=== PATIENT | female | born 1950 | race Two or more races ===

== ENCOUNTER 2022-02-14 06:17 | Inpatient (IN) | payer OTHER ==
[~2022-02-14] VITALS: Ht 157.5 cm; Wt 79.5 kg
[~2022-02-14 06:17] MED LIST: ALEN70TA74 PO; AMLO-483 PO; BISA10SU45 RE; CHOL20004 PO; CITA10TA8 PO; GLUC1CAP13 PO; IBUP800T27 PO; LACT1CAP26 PO; MULT-1018 OR; ROPI0.254 PO; THIA100T26 PO; TRAM50TA2 PO; TURM500C3 OR
[2022-02-14] MEDS ORDERED: ceFAZolin 1GM/50ML 100 ML IV ONE (06:42)
[2022-02-14] MEDS ORDERED: THROMBIN (BOVINE) 5000 UNIT SOL VIAL ONE (06:43)
[2022-02-14] MEDS ORDERED: GELATIN 1 SPONGE SIZE 100 TOP ONE (06:44)
[2022-02-14] MEDS ORDERED: MEPERIDINE HCL (50 MG/ML) 1 ML VIAL ONE (07:27)
[2022-02-14] MEDS ORDERED: MIDAZOLAM HCL 2MG/2ML 2ml VIAL (1mg/ml) ONE (07:27)
[2022-02-14] MEDS ORDERED: fentaNYL CITRATE 100 MCG/2 ML VL ONE (07:27)
[2022-02-14] MEDS ORDERED: IOHEXOL 300 MG/ML 100ML BOTTLE IJ ONE (08:28)
[2022-02-14] MEDS ORDERED: DexAMETHasone SOD PHOS 10MG/1ML VIAL INJ ONE (09:06)
[2022-02-14] MEDS ORDERED: SUGAMMADEX 200mg/2ml Vial (100MG/ML) IV ONE (09:55)
[2022-02-14] MEDS ORDERED: ceFAZolin 1GM/50ML 50 ML IV SCH (12:00)
[2022-02-14] MEDS ORDERED: HYDROmorphone HCL 2 MG/ML VL/or syr IV PRN (12:00)
[2022-02-14] MEDS ORDERED: NITROGLYCERIN 0.4 MG SL TAB SL PRN ×2 (12:00)
[2022-02-14] MEDS ORDERED: D5W/SOD CHL 0.45% 1,000 ML IV SCH ×2 (12:00)
[2022-02-14] MEDS: ceFAZolin 1GM/50ML 50 ML IV SCH ×2 (12:00→21:02)
[2022-02-14] MEDS ORDERED: HYDROcodone-ACET 10/325MG TAB PO PRN (12:00)
[2022-02-14] MEDS ORDERED: MILK OF MAGNESIA 30ML SUSP PO PRN (12:00)
[2022-02-14] MEDS ORDERED: MORPHINE SULFATE INJ 2 MG/ml SYRG IV PRN ×2 (12:00)
[2022-02-14] MEDS ORDERED: ACETAMINOPHEN 325 MG TAB PO PRN ×2 (12:00)
[2022-02-14] MEDS ORDERED: ONDANSETRON HCL 4 MG/2 ML VIAL IV PRN (12:30)
[2022-02-14] MEDS ORDERED: ePHEDrine SULFATE 50 MG/ML AMP IV PRN (12:30)
[2022-02-14] MEDS ORDERED: MORPHINE SULFATE 4 MG/ML SYR/VIAL IV PRN (12:30)
[2022-02-14] MEDS ORDERED: MIDAZOLAM HCL 2MG/2ML 2ml VIAL (1mg/ml) IV PRN (12:30)
[2022-02-14] MEDS: HYDROmorphone HCL 2 MG/ML VL/or syr IV PRN ×5 (12:52→15:15)
[2022-02-14] MEDS: LABETALOL HCL 5 MG/ML 4ML SYRINGE IV PRN ×2 (13:44→14:45)
[2022-02-14] MEDS ORDERED: CYCLOBENZAPRINE HCL 10 MG TAB PO SCH (14:00)
[2022-02-14] MEDS: CYCLOBENZAPRINE HCL 10 MG TAB PO SCH ×3 (14:00→21:14)
[2022-02-14] MEDS ORDERED: MECLIZINE HCL 25 MG TAB PO SCH (14:00)
[2022-02-14] MEDS: MECLIZINE HCL 25 MG TAB PO SCH ×2 (14:00→21:14)
[2022-02-14] MEDS ORDERED: ONDANSETRON HCL 4 MG/2 ML VIAL IV ONE (16:11)
[2022-02-14] MEDS ORDERED: PROPOFOL 10 MG/ML 20 ML IV ONE (16:11)
[2022-02-14] MEDS: HYDROcodone-ACET 10/325MG TAB PO PRN (16:53)
[2022-02-14 17:14] VITALS: BP 118/67
[2022-02-14 22:06] VITALS: BP 109/64
[2022-02-15 04:51] VITALS: BP 140/72
[2022-02-15] MEDS: CYCLOBENZAPRINE HCL 10 MG TAB PO SCH ×3 (05:36→22:02)
[2022-02-15] MEDS: MECLIZINE HCL 25 MG TAB PO SCH ×3 (05:37→22:02)
[2022-02-15 06:13] LABS: Basophils # (auto) 0 10 ^3/uL (0-0.2); Basophils % (auto) 0.2 % (0.0-2.0); Eosinophils # (auto) 0 10 ^3/uL (0-0.8); Eosinophils % (auto) 0.1 % (0.0-7.0); Hematocrit 31.9 % (36.0-46.0); Hemoglobin 11.3 g/dL (12.2-16.2); Lymphocytes # (auto) 0.6 10 ^3/uL (0.4-5.4); Lymphocytes % (auto) 5.7 % (10.0-50.0); Mean Corpuscular Hemoglobin 31.9 pg (28.0-32.0); Mean Corpuscular Hgb Conc. 35.4 g/dL (32.0-36.0); Mean Corpuscular Volume 90.2 fL (80.0-100.0); Monocytes # (auto) 0.8 10 ^3/uL (0-1.3); Monocytes % (auto) 8.3 % (0.0-12.0); Neutrophils # (auto) 8.8 10 ^3/uL (1.6-8.6); Neutrophils % (auto) 85.7 % (37.0-80.0); Red Blood Cells 3.54 10^6/uL (4.0-5.20); Red Cell Distribution Width 13.6 % (11.8-14.3); White Blood Cell 10.3 10^3/uL (4.4-10.8)
[2022-02-15 06:16] LABS: Albumin 3.3 g/dL (3.4-5.0); Calcium 8.1 mg/dL (8.5-10.1); Magnesium 1.9 mg/dL (1.6-2.6); Potassium 4.1 mmol/L (3.5-5.1)
[2022-02-15 06:22] LABS: BUN/Creatinine Ratio 27.3; Bilirubin, Total 0.5 mg/dL (0.2-1.0); Pre Albumin 14.6 mg/dL (20.0-40.0); Total Protein 5.6 g/dL (6.4-8.2)
[2022-02-15 09:00] VITALS: BP 136/79
[2022-02-15] MEDS: HYDROmorphone HCL 2 MG/ML VL/or syr IV PRN (09:05)
[2022-02-15 09:49] LABS: Urine Bacteria FEW /hpf (None Seen); Urine Blood 2+ /uL (Negative); Urine Hyaline Cast FEW /lpf (0 - 2); Urine Mucus FEW (None Seen); Urine Specific Gravity 1.013 (1.001-1.035); Urine WBC 12 /hpf (0 - 5)
[2022-02-15] MEDS: MAGNESIUM SULFATE 1GM/100ML 100 ML IV SCH ×2 (09:57→13:24)
[2022-02-15 13:04] VITALS: BP 109/61
[2022-02-15] MEDS: HYDROcodone-ACET 10/325MG TAB PO PRN ×2 (14:30→22:03)
[2022-02-15 16:47] VITALS: BP 110/50
[2022-02-15 21:30] VITALS: BP 112/68
[2022-02-16 04:23] LABS: Basophils # (auto) 0.1 10 ^3/uL (0-0.2); Basophils % (auto) 0.5 % (0.0-2.0); Eosinophils # (auto) 0.6 10 ^3/uL (0-0.8); Eosinophils % (auto) 6.1 % (0.0-7.0); Hematocrit 31.6 % (36.0-46.0); Lymphocytes # (auto) 1.3 10 ^3/uL (0.4-5.4); Lymphocytes % (auto) 13.4 % (10.0-50.0); Mean Corpuscular Hemoglobin 31.7 pg (28.0-32.0); Mean Corpuscular Hgb Conc. 34.8 g/dL (32.0-36.0); Mean Corpuscular Volume 91.2 fL (80.0-100.0); Monocytes # (auto) 0.9 10 ^3/uL (0-1.3); Monocytes % (auto) 9.6 % (0.0-12.0); Neutrophils # (auto) 6.7 10 ^3/uL (1.6-8.6); Neutrophils % (auto) 70.4 % (37.0-80.0); Nucleated Red Blood Cells % 0.1 %; Red Blood Cells 3.47 10^6/uL (4.0-5.20); Red Cell Distribution Width 13.5 % (11.8-14.3); White Blood Cell 9.5 10^3/uL (4.4-10.8)
[2022-02-16 04:52] LABS: Albumin 3.1 g/dL (3.4-5.0); Calcium 8.2 mg/dL (8.5-10.1); Magnesium 2.4 mg/dL (1.6-2.6); Potassium 4.3 mmol/L (3.5-5.1)
[2022-02-16 04:54] LABS: BUN/Creatinine Ratio 31.9
[2022-02-16 04:57] LABS: Bilirubin, Total 0.5 mg/dL (0.2-1.0); Phosphorus 4.1 mg/dL (2.5-4.90); Total Protein 5.2 g/dL (6.4-8.2)
[2022-02-16 05:00] VITALS: BP 134/63
[2022-02-16] MEDS: MECLIZINE HCL 25 MG TAB PO SCH ×4 (06:22→20:52)
[2022-02-16] MEDS: CYCLOBENZAPRINE HCL 10 MG TAB PO SCH ×3 (06:23→20:52)
[2022-02-16] MEDS: HYDROmorphone HCL 2 MG/ML VL/or syr IV PRN (08:34)
[2022-02-16 08:41] VITALS: BP 124/51
[2022-02-16 13:13] VITALS: BP 129/66
[2022-02-16] MEDS: HYDROcodone-ACET 10/325MG TAB PO PRN ×2 (13:18→23:45)
[2022-02-16 17:00] VITALS: BP 121/60
[2022-02-16] MEDS ORDERED: LACT10SO60 PO (19:42)
[2022-02-16] MEDS ORDERED: DOCU100T15 PO (19:42)
[2022-02-16 21:51] VITALS: BP 139/63
[2022-02-17 05:00] VITALS: BP 141/60
[2022-02-17] MEDS: CYCLOBENZAPRINE HCL 10 MG TAB PO SCH ×3 (05:49→21:49)
[2022-02-17] MEDS: MECLIZINE HCL 25 MG TAB PO SCH ×3 (05:49→21:49)
[2022-02-17 09:00] VITALS: BP 113/65
[2022-02-17] MEDS: HYDROmorphone HCL 2 MG/ML VL/or syr IV PRN ×2 (09:14→20:41)
[2022-02-17] MEDS: CITALOPRAM HYDROBR 20 MG TAB PO SCH (12:18)
[2022-02-17] MEDS: MILK OF MAGNESIA 30ML SUSP PO PRN (12:18)
[2022-02-17] MEDS: ROPINIROLE HCL 0.25 MG PO SCH ×2 (12:22→21:48)
[2022-02-17 13:00] VITALS: BP 137/52
[2022-02-17 22:00] VITALS: BP 117/66
[2022-02-18 05:00] VITALS: BP 145/75
[2022-02-18] MEDS: ROPINIROLE HCL 0.25 MG PO SCH ×3 (06:00→22:00)
[2022-02-18] MEDS: MECLIZINE HCL 25 MG TAB PO SCH ×3 (06:15→21:56)
[2022-02-18] MEDS: CYCLOBENZAPRINE HCL 10 MG TAB PO SCH ×3 (06:16→21:56)
[2022-02-18] MEDS: MILK OF MAGNESIA 30ML SUSP PO PRN (06:16)
[2022-02-18] MEDS: CITALOPRAM HYDROBR 20 MG TAB PO SCH (08:58)
[2022-02-18 09:00] VITALS: BP 148/72
[2022-02-18 11:17] LABS: Basophils # (auto) 0 10 ^3/uL (0-0.2); Basophils % (auto) 0.7 % (0.0-2.0); Eosinophils # (auto) 0 10 ^3/uL (0-0.8); Eosinophils % (auto) 0.8 % (0.0-7.0); Hematocrit 31.6 % (36.0-46.0); Hemoglobin 10.9 g/dL (12.2-16.2); Lymphocytes # (auto) 0.4 10 ^3/uL (0.4-5.4); Mean Corpuscular Hemoglobin 30.9 pg (28.0-32.0); Mean Corpuscular Hgb Conc. 34.5 g/dL (32.0-36.0); Mean Corpuscular Volume 89.6 fL (80.0-100.0); Monocytes # (auto) 0.6 10 ^3/uL (0-1.3); Monocytes % (auto) 9.9 % (0.0-12.0); Neutrophils % (auto) 81.6 % (37.0-80.0); Red Blood Cells 3.52 10^6/uL (4.0-5.20); Red Cell Distribution Width 13.5 % (11.8-14.3); White Blood Cell 6.1 10^3/uL (4.4-10.8)
[2022-02-18 11:30] LABS: BUN/Creatinine Ratio 39.4; Calcium 7.6 mg/dL (8.5-10.1); Potassium 4.2 mmol/L (3.5-5.1)
[2022-02-18 13:00] VITALS: BP 139/88
[2022-02-18] MEDS: HYDROcodone-ACET 10/325MG TAB PO PRN (13:39)
[2022-02-18 17:00] VITALS: BP 115/69
[2022-02-18 22:00] VITALS: BP 118/74
[2022-02-19 05:00] VITALS: BP 149/87
[2022-02-19] MEDS: HYDROcodone-ACET 10/325MG TAB PO PRN ×3 (05:02→18:25)
[2022-02-19] MEDS: ROPINIROLE HCL 0.25 MG PO SCH ×2 (05:02→13:08)
[2022-02-19] MEDS: CYCLOBENZAPRINE HCL 10 MG TAB PO SCH ×2 (05:02→13:07)
[2022-02-19] MEDS: MECLIZINE HCL 25 MG TAB PO SCH ×2 (05:02→13:07)
[2022-02-19] MEDS: CITALOPRAM HYDROBR 20 MG TAB PO SCH (08:32)
[2022-02-19 09:00] VITALS: BP 129/76
[2022-02-19 13:00] VITALS: BP 99/67
[2022-02-19 15:11] VITALS: BP 99/67
[2022-02-19 17:00] VITALS: BP 125/82
[2022-02-19 22:00] VITALS: BP 115/60
== END 2022-02-19 22:12 | DRG 457 ==
LOC: SUR 06:17 → TELE 11:52 → TELE-CENTR 16:34
PROVIDERS: ADMIT Orthopaedic Surgery; ATTEND Internal Medicine
PROC: 0RGA071 Fusion of Thoracolumbar Vertebral Joint with Autologous Tissue Substitute, Posterior Approach, Posterior Column, Open Approach (ICD-10-PCS; 2022-02-14)
PROC: 00NX0ZZ Release Thoracic Spinal Cord, Open Approach (ICD-10-PCS; 2022-02-14)
PROC: 00NY0ZZ Release Lumbar Spinal Cord, Open Approach (ICD-10-PCS; 2022-02-14)
PROC: 0PS43ZZ Reposition Thoracic Vertebra, Percutaneous Approach (ICD-10-PCS; 2022-02-14)
PROC: 0PU43JZ Supplement Thoracic Vertebra with Synthetic Substitute, Percutaneous Approach (ICD-10-PCS; 2022-02-14)
PROC: 4A11X4G Monitoring of Peripheral Nervous Electrical Activity, Intraoperative, External Approach (ICD-10-PCS; 2022-02-14)
PROC: 0RG7071 Fusion of 2 to 7 Thoracic Vertebral Joints with Autologous Tissue Substitute, Posterior Approach, Posterior Column, Open Approach (ICD-10-PCS; principal; 2022-02-14 08:10)
PROC: 0SG1071 Fusion of 2 or more Lumbar Vertebral Joints with Autologous Tissue Substitute, Posterior Approach, Posterior Column, Open Approach (ICD-10-PCS; 2022-02-14 08:10)
DX: M48.05 Spinal stenosis, thoracolumbar region (principal); E44.0 Moderate protein-calorie malnutrition; E87.0 Hyperosmolality and hypernatremia; E87.1 Hypo-osmolality and hyponatremia; G95.9 Disease of spinal cord, unspecified; M54.15 Radiculopathy, thoracolumbar region; E83.51 Hypocalcemia; I10 Essential (primary) hypertension; G20 Parkinson's disease; D64.9 Anemia, unspecified; G89.29 Other chronic pain; R74.01 Elevation of levels of liver transaminase levels; Z20.822 Contact with and (suspected) exposure to COVID-19; Z68.23 Body mass index [BMI] 23.0-23.9, adult
CPT/HCPCS: 36415; 76000; 80048; 80053; 81001; 82040; 82306; 82607; 83036; 83735; 84100; 84443; 85025; 86850; 86900; 86901; 87426; 93005; 97110; 97116; 97163; 97530; G0378; J0690; J1100; J2250; J2405; J2704; J3490